=== PATIENT | female | born 1955 | race Caucasian/White ===

== ENCOUNTER 2022-03-13 10:17 | Emergency (ER) | payer OTHER, SELFPAY ==
[2022-03-13 10:38] VITALS: BP 112/72; PULSE 65; RESP 18; TEMP 36.2; O2SAT 98; BMI 23.9
--- NOTE | 2022-03-13 12:23 | ED.BACK ---
HPI - Back Pain/Injury General Chief Complaint: Back Injury/Pain Stated Complaint: Fell this morning, lower back pain Time Seen by Provider: 03/13/22 12:10 History of Present Illness HPI Narrative: This 66-year-old female comes in with an injury to her tailbone. About 3 hours prior to arrival she states that she was getting out of a car and she slipped and fell hard onto her tailbone. She was able to get up and ambulate. She did not have any other injury. She did not hit her head or have loss of consciousness. She has not taken any pain medicines. She is able to sit in a certain position without much increased discomfort. Related Data Home Medications Medication Instructions Recorded Confirmed calcium carbonate 600 mg-vitamin 1 tab PO DAILY 11/07/21 12/23/21 D3 10 mcg (400 unit) tablet clobetasol 0.05 % topical ointment 1 topical BID 11/07/21 12/23/21 sumatriptan succinate 100 mg tablet 100 mg PO ONCE 11/07/21 12/23/21 tizanidine 2 mg capsule 4 mg PO .1-3 X WEEKLY PRN 11/07/21 12/23/21 Previous Rx's Medication Instructions Recorded ibandronate 150 mg tablet 150 mg PO .Every 30 Days #4 tabs 11/07/21 metoprolol succinate 25 mg 25 mg PO DAILY #90 tabs 12/24/21 tablet,extended release 24 hr estradiol 10 mcg vaginal tablet See Rx Instructions .Route 02/17/22 .COMPLEX #24 tabs ketorolac 10 mg tablet 10 mg PO Q8H 5 days #15 tabs 03/13/22 Allergies Allergy/AdvReac Type Severity Reaction Status Date / Time No Known Allergies Allergy Unknown Verified 12/23/21 15:22 Review of Systems Status of ROS: Reports: 10 or more systems reviewed and unremarkable except as noted in History and below Narrative: Constitutional: No fevers, no weight gain or loss. Eyes: No discharge. No vision changes. HENT: No congestion, no sore throat, no ear pain. Cardiovascular: No chest pain, no palpitations. Respiratory: No shortness of breath, no wheezes, no cough. Gastrointestinal: No abdominal pain, no vomiting, no diarrhea. Genitourinary: No dysuria, no hematuria. Musculoskeletal: Normal range of motion. Tailbone injury as described above. Skin: No rashes, no pruritis. Neurological: No dizziness, weakness, sensory change, speech change. Endo/Heme/Allergies: No bruising or bleeding. No polydipsia. Pysch: no suicidality, no anxiety, no insomnia. All other systems reviewed and are negative. [facility] Medical History (Updated 03/13/22 @ 12:26 by Brian Kent MD) History of histoplasmosis Surgical History (Updated 11/07/21 @ 15:35 by Kaitlynn Rajan MD) History of benign breast biopsy History of cervical spinal arthrodesis (08/16/15) History of foot surgery Family History (Updated 10/11/21 @ 10:30 by Britt Armenta) Father CHF (congestive heart failure), Onset Age: 97 Daughter Mental disorder Paternal Grandmother Pancreatic cancer Family/Other Pancreatic cancer Social History (Updated 10/11/21 @ 10:31 by Britt Armenta) Narrative: Exercise involving walking- 30 min daily, walks dog, also [employer] Non-smoker Sig other, , retired special registered nurse obstetrics, 2 adult children Social drinker- 1 glass wine every day Smoking Status: Never smoker Exam Narrative: Exam Narrative: Constitutional: Well-developed, well-nourished, no acute distress. HEENT: Normocephalic, atraumatic. Neck: Normal range of motion. Nontender. Supple. Heart: Intact distal pulses. Lungs: No chest discomfort. No wheezes, rhonchi, or rales. Abdomen: Nontender. Back: Normal range of motion. Tenderness overlying the tailbone and sacrum. There is no sign of hematoma or significant swelling. Extremities: Normal range of motion. No injury. Skin: Intact. No rash. Warm. No erythema or pallor. Neurologic: No altered sensation. No weakness. Alert and oriented. Psychiatric: No suicidality. No anxiety or depression. No insomnia. Nursing notes and vitals signs are reviewed. Const: Vital Signs, click to edit/add: Vital Signs - 24 hr 03/13/22 10:38 Temperature 97.2 F L Pulse Rate [Right Pulse Oximeter] 65 Respiratory Rate 18 Blood Pressure [Ri ght Upper Arm] 112/72 Pulse Oximetry 98 Oxygen Delivery Me thod Room Air Course Vital Signs Vital signs: Initial Vital Signs Temperature 97.2 F L 03/13/22 10:38 Temperature Source Temporal Artery Scan 03/13/22 10:38 Pulse Rate 65 03/13/22 10:38 Respiratory Rate 18 03/13/22 10:38 Blood Pressure 112/72 03/13/22 10:38 Blood Pressure Mean 85 03/13/22 10:38 Blood Pressure Position Sitting 03/13/22 10:38 Pulse Oximetry 98 03/13/22 10:38 Oxygen Delivery Method 03/13/22 10:38 Vital Signs Temperature 97.2 F L 03/13/22 10:38 Pulse Rate 65 03/13/22 10:38 Respiratory Rate 18 03/13/22 10:38 Blood Pressure 112/72 03/13/22 10:38 Pulse Oximetry 98 03/13/22 10:38 Oxygen Delivery Method 03/13/22 10:38 Temperature 97.2 F L 03/13/22 10:38 Pulse Rate 65 03/13/22 10:38 Respiratory Rate 18 03/13/22 10:38 Blood Pressure 112/72 03/13/22 10:38 Pulse Oximetry 98 03/13/22 10:38 Oxygen Delivery Method 03/13/22 10:38 MDM - Back Pain/Injury MDM Narrative Medical decision making narrative: This patient comes in with a tailbone injury as described above. I did discuss the role of x-ray imaging but indicated that this could be an option as she is not showing more troubling signs and symptoms related to this particular injury. The mechanism of injury also is a fall from not quite standing height position. In a process of shared decision making she declined imaging. She did agree to a prescription of Toradol. She is instructed also to use Tylenol as needed and directed. Discharge Plan Discharge Clinical Impression: Coccygeal contusion Patient Disposition: Home w/ Parent or Adult Condition: Stable Additional Instructions: Take medication as needed and indicated. Increase activity as tolerated. Follow up with MD or return if worsening. Prescriptions: New ketorolac 10 mg tablet 10 mg PO Q8H 5 Days Qty: 15 0RF No Action clobetasol 0.05 % ointment 1 topical BID Rx Instructions: APPLY SPARINGLY TO AFFECTED AREA calcium carbonate-vitamin D3 600 mg-10 mcg (400 unit) tablet 1 tab PO DAILY tizanidine 2 mg capsule 4 mg PO .1-3 X WEEKLY PRN sumatriptan succinate 100 mg tablet 100 mg PO ONCE ibandronate 150 mg tablet 150 mg PO .Every 30 Days Qty: 4 3RF metoprolol succinate 25 mg tablet extended release 24 hr 25 mg PO DAILY Qty: 90 3RF estradiol 10 mcg tablet See Rx Instructions .ROUTE .COMPLEX Qty: 24 1RF Dose Instruction: INSERT 1 TABLET VAGINALLY TWICE WEEKLY Rx Instructions: INSERT 1 TABLET VAGINALLY TWICE WEEKLY Follow Up/Referrals: Kaitlynn Rajan MD [Primary Care Provider] - Stand Alone Forms: [employer] [facility] Info Instructions
[2022-03-13 13:04] VITALS: BP 119/77; PULSE 76; RESP 18; O2SAT 100
== END 2022-03-13 13:08 | disposition home or self-care (01) ==
LOC: ED 12:32
PROVIDERS: Emergency Provider Emergency Medicine Emergency Medical Services; PCP Internal Medicine
DX: S30.0XXA Contusion of lower back and pelvis, initial encounter (principal); V48.4XXA Person boarding or alighting a car injured in noncollision transport accident, initial encounter
CPT/HCPCS: 99283; 99284

== ENCOUNTER 2022-06-04 14:48 | Outpatient (CLI) | payer MEDICARE, OTHER, SELFPAY ==
--- NOTE | 2022-06-04 15:00 | CRLHL7_ITS ---
For Patients: As a result of the Cures Act, medical imaging exams and procedure reports are released immediately into your electronic medical record. You may view this report before your referring provider. If you have questions, please contact your health care provider. BILATERAL SCREENING MAMMOGRAM WITH COMPUTER-AIDED DETECTION AND TOMOSYNTHESIS TECHNIQUE: CC and MLO views were obtained. These mammographic images have been obtained using full-field digital technique. These mammographic images were interpreted with the benefit of computer-aided detection. Breast Tomosynthesis was used in this interpretation. COMPARISON FILM: 11/24/2019, 01/02/2021. FINDINGS: The breasts are heterogeneously dense, which may obscure small masses IMPRESSION: There is no radiographic evidence for malignancy. ASSESSMENT: BI-RADS Category 1: Negative RECOMMENDATION: Routine screening mammogram in 1 year. A lay language report of this examination will be provided to the patient. Adriel Fragoso M.D. Diagnostic Radiologist [email or web address] [email or web address] Transcribed: 2:52 p.mConstantine bautista/Dictated by: Adriel Fragoso MD @ 06/05/2022 8:56:00 AM (Electronically Signed)
== END 2022-06-04 14:49 | disposition home or self-care (01) ==
LOC: MAMMO 14:49
PROVIDERS: PCP Internal Medicine; Visit Provider Obstetrics & Gynecology
DX: Z12.31 Encounter for screening mammogram for malignant neoplasm of breast (principal); R92.2 Inconclusive mammogram
CPT/HCPCS: 77063; 77067

== ENCOUNTER 2023-08-05 10:09 | Outpatient (CLI) | payer MEDICARE, OTHER, SELFPAY ==
--- NOTE | 2023-08-05 10:15 | CRLHL7_ITS ---
For Patients: As a result of the Century Cures Act, medical imaging exams and procedure reports are released immediately into your electronic medical record. You may view this report before your referring provider. If you have questions, please contact your health care provider. BILATERAL SCREENING MAMMOGRAM WITH COMPUTER-AIDED DETECTION AND TOMOSYNTHESIS TECHNIQUE: CC and MLO views were obtained. These mammographic images have been obtained using full-field digital technique. These mammographic images were interpreted with the benefit of computer-aided detection. Breast Tomosynthesis was used in this interpretation. COMPARISON FILM: 06/04/22, 01/02/21, 11/24/19. FINDINGS: The breasts are heterogeneously dense, which may obscure small masses IMPRESSION: There is no radiographic evidence for malignancy. ASSESSMENT: BI-RADS Category 1: Negative RECOMMENDATION: Routine screening mammogram in 1 year. A lay language report of this examination will be provided to the patient. Adriel Fragoso M.D. Diagnostic Radiologist [email or web address] EDUARDO/[email or web address] Transcribed: 3:05 p.sonny bautista/Dictated by: Adriel Fragoso MD @ 08/07/2023 12:40:00 PM (Electronically Signed)
== END 2023-08-05 10:10 | disposition home or self-care (01) ==
LOC: MAMMO 10:10
PROVIDERS: PCP Internal Medicine; Visit Provider Obstetrics & Gynecology
DX: Z12.31 Encounter for screening mammogram for malignant neoplasm of breast (principal); R92.2 Inconclusive mammogram; Z13.6 Encounter for screening for cardiovascular disorders; Z13.29 Encounter for screening for other suspected endocrine disorder
CPT/HCPCS: 77063; 77067; 80061; 84443

== ENCOUNTER 2023-12-15 10:23 | Outpatient (CLI) | payer MEDICARE, OTHER, SELFPAY ==
--- OUTSIDE RECORDS SUMMARY | 2023-12-15 10:25 | XMS_ITS | Referral Summary ---
Author Organization [facility] Address [address] [place] [id number] Care Team Providers Care Senior Internal Auditor Name Role Phone Elsewhere, Pcp Primary Care Provider Unavailabl e Source Comments Patient records contain information from all sites at [facility]. For routine questions regarding patient records, call [phone] during business hours, M-F 8:00 AM - 5:00 PM Central Time. Record requests for emergency care only can be directed to [phone] at any time.[facility] Encounters Date Type Department Care Team Description 11/24/2023 8:15 AM CDT Telemedicine Department of Neurology in [address] [phone] Rachael Lowery APRN, C.N.P., M.S.N. Chronic Migraine (Primary Dx) 11/23/2023 10:30 AM CDT Clinical Communication Virtual Review in [address] [phone] Pre-visit Intake 11/09/2023 1:20 PM CDT - 11/09/2023 1:36 PM CDT Hospital Encounter Department of Neurology in [address] [phone] Rachael Lowery APRN C.N.P., M.S.N. Scotty Partida M.D. Chronic Migraine Discharge Disposition: Home or Self Care from Last 3 Months Allergies No known active allergies Medications * This document contains information received from the source organization and may not represent a complete record from that organization. clobetasoL (TEMOVATE) 0.05 % ointment Apply 1 application. topically as needed. Active ibandronate (BONIVA) 150 mg tablet Take 150 mg by mouth every 30 (thirty) days. 1 Active calcium carbonate-vit D3-min 600 mg calcium- 400 unit tablet Take 1 tablet by mouth daily. 8 Active diclofenac sodium (VOLTAREN) 1 % gel Apply 2 g topically as needed. 8 Active estradioL (VAGIFEM) 10 mcg vaginal tablet Insert 10 mcg into the vagina 2 (two) times a week. 2 Active tiZANidine (ZANAFLEX) 2 mg tablet Take 3 tablets (6 mg total) by mouth at bedtime as needed for muscle spasms. 270 tablet 3 3 Active DULoxetine (Cymbalta) [address] capsule If titration tolerated, then switch to 60 mg cap and take once daily. 90 capsule 4 4 Active SUMAtriptan (IMITREX) 100 mg tablet Take 1 tablet (100 mg total) by mouth once as needed (severe headache) for up to 1 dose. May repeat dose after 2 hrs. Limit: 9 days/month. 12 tablet 3 2 11/23/19 24 Discontinu ed(Therapy completed) DULoxetine (Cymbalta) [address] capsule If titration tolerated, then switch to 60 mg cap and take once daily. 90 capsule 4 3 11/24/19 24 Discontinu ed(Reorder ) Active Problems Problem Noted Date Diagnosed Date Adjustment Disorder 05/30/2021 Pain Cervical 05/30/2021 Osteopenia 05/30/2021 Chronic Migraine 03/06/2021 Immunizations Name Administration Dates Next Due PPD Test 07/26/1997 RZV (SHINGRIX) 05/03/2020,03/01/2020 SARS-COV-2 (COVID-19) - PFIZ ER (Discontinued)(12 years or older) 10/22/2021 SARS-COV-2 (COVID-19) - PFIZ ER BIVALENT TS(Discontinued)(12 YEARS OR OLDER) 12/19/2021 Td Preservative Free (TENIVAC, DECAVAC) 11/24/19 Td, (Adult) Unspecified 11/24/2019 Tdap 10/20/2005 influenza vaccine quad (FLUZ ONE/FLUARIX) (6 months and older)(PF) 12/19/2021 Social History Tobacco Use Types Packs/Day Years Used Date Smoking Tobacco: Never Passive Smoke Exposure: Past Smokeless Tobacco: Never Tobacco Cessation:Counseling Given: Not Answered Alcohol Use Standard Drinks/Week Comments Yes 3 (1 standard drink = 0.6 oz pur e alcohol) [facility] Utilities Answer Date Recorded In the past 12 months has e [employer], [employer], oil, or water [employer] threatened to shut off services in your home? No 02/24/2023 Humiliation, Afraid, Rape, and Kick questionnair e Answer Date Recorded Within the last year, have y ou been afraid of your partner or ex-partner? No 12/17/2021 Within the last year, have y ou been humiliated or emotionally abused in other ways by your partner or ex-partner? No Within the last year, have y ou been kicked, hit, slapped, or otherwise physically hurt by your partner or ex-partner? No 12/17/2021 Within the last year, have y ou been raped or forced to have any kind of sexual activity by your partner or ex-partner? No 12/17/2021 Social Connection and Isolat ion Panel [NHANES] Answer Date Recorded In a typical week, how many times do you talk on the phone with family, friends, or neighbors? More than three times a week 12/17/2021 How often do you get togethe r with friends or relatives? More than three times a week 12/17/2021 How often do you attend [facility] or roman catholic services? Never 12/17/2021 Do you belong to any clubs o r organizations such as episcopalian groups, unions, fraternal or athletic groups, or school groups? No 12/17/2021 How often do you attend meet ings of the clubs or organizations you belong to? Patient declined 12/17/2021 Are you , , di vorced, , never , or living with a partner? Living with partner 12/17/2021 AUDIT-C Answer Date Recorded Q1: How often do you have a drink containing alc ohol? 2-3 times a week 12/17/2021 Q2: How many drinks containi ng alcohol do you have on a typical day when you are drinking? 1 or 2 12/17/2021 Q3: How often do you have si x or more drinks on one occasion? Never 12/17/2021 Overall Financial Resource Strain (CARDIA) Answe r Date Recorded How hard is it for you to pa y for the very basics like food, housing, medical care, and heating? Not hard at all 12/17/2021 PHQ-2 Answer Date Recorded PHQ-2 Score 0 11/23/2023 [facility] - Occupational Stress Questionnaire Answer Date Recorded Do you feel stress - tense, restless, nervous, or anxious, or unable to sleep at night because your mind is troubled all the time - these days? Only a little 12/17/2021 Exercise Vital Sign Answer Date Recorde d On average, how many days pe r week do you engage in moderate to strenuous exercise (like a brisk walk)? 7 days 02/24/2023 On average, how many minutes do you engage in exercise at this level? 100 min 02/24/2023 Hunger Vital Sign Answer Date Recorded Within the past 12 months, y ou worried that your food would run out before you got the money to buy more. Never true 02/25/20 Within the past 12 months, t he food you bought just didn't last and you didn't have money to get more. Never true 02/24/2023 PRAPARE - Transportation Answer Date Re corded In the past 12 months, has l ack of transportation kept you from medical appointments or from getting medications? No 01/31 In the past 12 months, has l ack of transportation kept you from meetings, work, or from getting things needed for daily living? No 02/24/2023 Depression Answer Date Recor ded PHQ-9 Total Score (max 27) 2 11/22 Nutrition Answer Date Recorded On average, how many serving s of fruits and vegetables do you eat per day (serving size is equal to 1 cup or approximately the size of a tennis ball)? 3-5 02/24/2023 Dental Answer Date Recorded Dental: Regular Dentist Yes 03/12/19 Employment Answer Date Recorded Employment status Retired 02/24/2023 Housing Stability Answer Date Recorded What is your living situation today? I have a [facility] place to live 02/24/2023 Education Answer Date Recorded What is the highest level of school you have completed or the highest degree you have received? Master's degree (e.g., MA, MS, Melissa, MEd, [employer]GE [employer], [employer]) 03/12/2021 Comments No Sex and Gender Information Value Date Recorded Sex Assigned at Female 03/12/2021 9:45 AM [employer] Legal Sex Female 10:38 AM [employer] Gender Identity Female 03/12/2021 9:45 AM [employer] Sexual Orientation Straight 03/12/2021 9: 45 AM [employer] Last Filed Vital Signs Vital Sign Reading Time Taken Comments Blood Pressure 88/58 06/12/2022 10:18 AM CDT Pulse 53 06/12/2022 10:18 AM CDT Temperature 36.6 ??C (97.9 ??F) 07/03/2021 1 :42 PM CDT Respiratory Rate - - Oxygen Saturation - - Inhaled Oxygen Concentration - - Weight 63.7 kg (140 lb 6.9 oz) 06/12/2022 10:18 AM CDT with shoes on Height 164.2 cm (5' 4.65) 06/12/2022 1 0:18 AM CDT with shoes on Body Mass Index 23.63 06/12/2022 10:18 AM CDT Plan of Treatment Upcoming Encounters Date Type Department Care Team (Late st Contact Info) Description 02/01/2024 2:45 PM [employer] Appointment Department of Neurology in [place], [place] [address] [place] [phone] Rachael Lowery APRN, C.N.P., M.S.N. [address] [place] [address] Discharge Disposition: Home or Self Care Medical Devices Implanted Type Area Director Of Hemophilia Device Identifier Shelf Expiration Date Model / Serial / Lot C1 C2 Fusion Hardware e.g. pins/screws/r ods Back Dental Implant Hardware e.g. pins/screws/r ods Mouth Procedures Procedure Name Priority Date/Time Associated Diagnosis Comments SC CHEMODENERV FACIAL TRIGEM ASHLEIGH Routine 11/09/2023 1:30 PM CDT Chronic Migraine from Last 3 Months Results * SC CHEMODENERV FACIAL TRIGEM ASHLEIGH (11/09/2023 1:30 PM CDT) Narrative [facility] - 11/09/2023 1:30 PM CDT Scotty Partida M.D. ? 11/09/2023 ??1:36 PM Botox for Chronic Migraine Performed by: Scotty Partida M.D. Authorized by: Rachael Lowery APRN, C.N.P., M.S.N. ?? Care team members present 1. Jak Chandler L.P.N. PROCEDURE DETAILS ?? Pre-procedure pain score: 4/10 Injection of: ??100 Units onabotulinumtoxinA 100 unit 50 Units onabotulinumtoxinA 50 unit Needle gauge: 30 Needle length: 0.5 in Injection site details Senior Manager [employer] / Procerus muscle(s): 5 units into the left call worker muscle, 5 units into the right call worker muscle ??and 5 units into the procerus muscle ??(15 units total). Superior Frontalis muscle(s): 5 units into the left superior frontalis muscle and 5 units into the right superior frontalis muscle ?(2 injection sites per muscle) (10 units total). Temporalis muscle(s): 12.5 units into the left temporalis muscle and 12.5 units into the right temporalis muscle ?(2 injection sites per muscle) ?? (25 units total). Splenius Capitis muscle(s): 12.5 units into the left splenius capitis muscle and 12.5 units into the right splenius capitis muscle ?(2 injection sites per muscle) ??(25 units total). Occipitalis muscle(s): 12.5 units into the left occipitalis muscle and 12.5 units into the right occipitalis muscle ?? (2 injection sites per muscle) ??(25 units total). Trapezius muscle(s): 25 units into the left trapezius muscle and 25 units into the right trapezius muscle ?? (3 injection sites per muscle) ??(50 units total). Total units wasted: 0 Total units injected: 150 CONSENT Consent obtained: written (Risks, benefits and alternatives were discussed and a written Informed Consent was obtained. Please see Informed Consent form for further details.) UNIVERSAL PROTOCOL All relevant documentation and testing were reviewed and available. All required blood products, implants, devices and or special equipment were made available as applicable. Pre-procedure verification was conducted and the correct site was marked if required. A fire risk and smoke assessment were done as applicable. The procedural time-out to verify correct patient, correct side/site, and procedure was conducted prior to performing the procedure and confirmed in a procedural pause. PRE-PROCEDURE DETAILS ?? Reason for injections: chronic migraine Appropriate hand hygiene, gown, cap, mask, protective eyewear, sterile gloves, skin preparation, sterile drape, and strict aseptic technique were utilized as applicable for the procedure: yes Site preparation: alcohol Clinical history: Patient was made aware that they may be responsible for any and all costs associated with injection of Botulinum Toxin Type A that is not covered by a third libertarian. ?? Prior to treatment with Botox, the frequency of headaches was greater than 30 days per month and with significant impairment in the quality of life. ?? Please see the initial Botox injection note and Headache consultation note regarding specific details of the headache history prior to the start of treatment. Any other daily migraine prophylactic treatments taken over the last 3 months: ??Duloxetine (Cymbalta) Headache frequency when Botox is most effective (middle month in between rounds). Current headache days per month: 1 days Current severe headache days per month: 0 days Wearing off phenomenon prior to this round of Botox: yes Duration: 3 weeks Patient finds Botox treatment helpful and wants to repeat the treatment? yes Patient had migraine headache frequency reduction by at least 29 days per month compared to pretreatment level. ?? Midas Scorin (11/03/2023 ??4:25 PM) POST-PROCEDURE DETAILS ?? Procedure completed successfully: yes ?? Complications: no apparent complications Comments Medications tried prior to Botox Botox treatment: Metoprolol, Gabapentin, Topiramate and Atenolol. Prior to Botox how many days per month did you miss work/school due to migraines? None- powered through. Prior to Botox how many days per month did you miss out on family functions or home activities due to migraines? None- powered through. Prior to Botox did severe migraines cause symptoms that impacted your quality of life and ability to care for yourself? If yes, what symptoms? Yes. Pressure like/ throbbing head pain. With Botox how many days per month do you miss work/school due to migraines? None. With Botox how many days per month do you miss out on family functions or home activities due to migraines? None. How has Botox impacted your quality of life; are you able to do more at work/school or home? Yes. More active and functional with Botox treatment. What migraine symptoms have you noted an improvement on since starting Botox? Improvement in all symptoms with Botox. Jaime Gardner APRNNNimisha., M.S.N. NEUROLOGY ORDERABLES Final Result [facility] NA from Last 3 Months Insurance MEDICARE [facility] Care Teams Senior Internal Auditor Relationship Specialty Start Date End Date Elsewhere, Pcp PCP - General Internal Medicine 05/22/23
--- OUTSIDE RECORDS SUMMARY | 2023-12-15 10:25 | XMS_ITS ---
Author Organization [facility] Address [address] [place] [address] Care Team Providers Care Dorr Operator Name Role Phone Unavailable Unavailable Unavailable Surgery Details Not on file Complications Check Surgery Details section. Procedure Estimated Blood Loss Check Surgery Details section. Procedure Findings Check Surgery Details section. Procedure Specimens Taken Check Surgery Details section.
--- OUTSIDE RECORDS SUMMARY | 2023-12-15 10:25 | XMS_ITS | Encounter Summary ---
Author Organization [facility] Address [address] [place] [id number] Care Team Providers Care Metal Plater Name Role Phone Elsewhere, Pcp Primary Care Provider Unavailabl e Reason for Referral * Outpatient (Routine) - Authorized Specialty Diagnoses / Procedures Referred By Kwabenaac t Referred To Contact Diagnoses Chronic Migraine Procedures Botox for Chronic Migraine FL INJECTION,ONABOTULINUMTOXINA FL CHEMODENERV FACIAL TRIGEM ASHLEIGH Rachael Lowery APRN, C.N.P., M.S.N. [address] [place] [phone] Phone: tel: fax: [facility] Referral ID Status Reason Start Date Expiration Date V isits Requested Visits Authorized [id number] Authorized 03/19/2022 03/01/2024 12 12 Reason for Visit * Outpatient (Routine) - Authorized Specialty Diagnoses / Procedures Referred By Contac t Referred To Contact Diagnoses Chronic Migraine Procedures Botox for Chronic Migraine FL INJECTION,ONABOTULINUMTOXINA FL CHEMODENERV FACIAL TRIGEM ASHLEIGH Rachael Lowery APRN, C.N.P., M.S.N. [address] [place] [phone] Phone: tel: fax: [facility] Referral ID Status Reason Start Date Expiration Date V isits Requested Visits Authorized [id number] Authorized 03/19/2022 03/01/2024 12 12 Encounter Details Date Type Department Care Team (Latest Contact Info) Description 11/09/2023 1:20 PM CDT - 11/09/2023 1:36 PM CDT Hospital Encounter Department of Neurology in [place], [place] [address] [place] [phone] Racheal Lowery APRN, CConstantineNConstantineP., M.S.N. [address] [place] [phone] Scotty Partida M.D. [address] [place] [phone] Chronic Migraine Discharge Disposition: Home or Self Care Social History Tobacco Use Types Packs/Day Years Used Date Smoking Tobacco: Never Passive Smoke Exposure: Past Smokeless Tobacco: Never Alcohol Use Standard Drinks/Week Comments Yes 3 (1 standard drink = 0.6 oz pur e alcohol) [facility] [employer] Answer Date Recorded In the past 12 months has [employer], oil, or water [employer] threatened to shut off services in your [...] week 12/17/2021 How often do you attend [facility] or [facility]ai services? Never 12/17/2021 Do you belong to any clubs o r organizations such as protestant groups, unions, fraternal or athletic groups, or [...] PHQ-2 Answer Date Recorded PHQ-2 Score 0 05/25/2023 [facility] - Occupational Stress Questionnaire Answer Date Recorded [...] money to buy more. Never true 02/25/20 23 Within the past 12 months, t he [...] Recor ded PHQ-9 Total Score (max 27) 0 05/24 Nutrition Answer Date Recorded On average, how [...] your living situation today? I have a [facility] place to live 02/24/2023 Education Answer Date Recorded What is the highest level of school you have completed or the highest degree you have received? Master's degree (e.g., MA, MS, Melissa, MEd, RADIOACTIVE WASTE DISPOSAL DISPATCHER, ROBERTO CARLOS) 03/12/2021 Comments No Sex and Gender Information Value Date Recorded Sex Assigned at Female 03/12/2021 9:45 AM POULTRY BONER Legal Sex Female 10:38 AM POULTRY BONER Gender Identity Female 03/12/2021 9:45 AM POULTRY BONER Sexual Orientation Straight 03/12/2021 9: 45 AM POULTRY BONER documented as of this encounter Medications at Time of Discharge calcium carbonate-vit D3-min 600 mg calcium- 400 unit tablet Take 1 tablet by mouth daily. 07/15/2017 clobetasoL (TEMOVATE) 0.05 % ointment Apply 1 application. topically as needed. diclofenac sodium (VOLTAREN) 1 % gel Apply 2 g topically as needed. 08/10/2017 estradioL (VAGIFEM) 10 mcg vaginal tablet Insert 10 mcg into the vagina 2 (two) times a week. 03/15/2021 ibandronate (BONIVA) 150 mg tablet Take 150 mg by mouth every 30 (thirty) days. 01/05/2021 tiZANidine (ZANAFLEX) 2 mg tablet Take 3 tablets (6 mg total) by mouth at bedtime as needed for muscle spasms. 270 tablet 3 02/27/2023 DULoxetine (Cymbalta) [address] capsule If titration tolerated, then switch to 60 mg cap and take once daily. 90 capsule 4 12/09/2022 09/24/202 4 SUMAtriptan (IMITREX) 100 mg tablet Take 1 tablet (100 mg total) by mouth once as needed (severe headache) for up to 1 dose. May repeat dose after 2 hrs. Limit: 9 days/month. 12 tablet 3 03/12/2021 4 documented as of this encounter Procedure Notes * Scotty Partida M.D. - 11/09/2023 1:30 PM CDTAssociated Order(s): Botox for Chronic Migraine Pre-Procedure Diagnose(s): Chronic Migraine Post-Procedure Diagnose(s): Chronic Migraine Botox for Chronic Migraine Performed by: Scotty Partida M.D. Authorized by: Rachael Lowery APRN, C.N.P., M.S.N. Care team members present 1. Jak Chandler LConstantinePNya PROCEDURE DETAILS Pre-procedure pain score: 4/10 Injection of: 100 Units onabotulinumtoxinA 100 unit 50 Units onabotulinumtoxinA 50 unit Needle gauge: 30 Needle length: 0.5 in Injection site details Film Reproducer / Procerus muscle(s): 5 units into the left extruder operator vertical muscle, 5 units into the right extruder operator vertical muscle and 5 units into the procerus muscle (15 units total). Superior Frontalis muscle(s): 5 units into the left superior frontalis muscle and 5 units into the right superior frontalis muscle (2 injection sites per muscle) (10 units total). Temporalis muscle(s): 12.5 units into the left temporalis muscle and 12.5 units into the right temporalis muscle (2 injection sites per muscle) (25 units total). Splenius Capitis muscle(s): 12.5 units into the left splenius capitis muscle and 12.5 units into the right splenius capitis muscle (2 injection sites per muscle) (25 units total). Occipitalis muscle(s): 12.5 units into the left occipitalis muscle and 12.5 units into the right occipitalis muscle (2 injection sites per muscle) (25 units total). Trapezius muscle(s): 25 units into the left trapezius muscle and 25 units into the right trapezius muscle (3 injection sites per muscle) (50 units total). Total units wasted: 0 Total [...] confirmed in a procedural pause. PRE-PROCEDURE DETAILS Reason for injections: chronic migraine Appropriate hand [...] is not covered by a third libertarian. Prior to treatment with Botox, the frequency of headaches was greater than 30 days per month and with significant impairment in the quality of life. Please see the initial Botox injection note and Headache consultation note regarding specific details of the headache history prior to the start of treatment. Any other daily migraine prophylactic treatments taken over the last 3 months: Duloxetine (Cymbalta) Headache frequency when Botox is most [...] days per month compared to pretreatment level. Midas Scorin (11/03/2023 4:25 PM) POST-PROCEDURE DETAILS Procedure completed successfully: yes Complications: no apparent complications Comments Medications tried [...] Botox? Improvement in all symptoms with Botox. documented in this encounter Plan of Treatment Upcoming Encounters Date Type Department Care Team (Late st Contact Info) Description 02/01/2024 2:45 PM POULTRY BONER Appointment Department of Neurology in [place], [place] [address] [place] [phone] Rachael Lowery APRN, C.N.P., M.S.N. [address] [place] [address] Discharge Disposition: Home or Self Care documented as of this encounter Procedures Procedure Name Priority Date/Time Associated Diagnosis Comments FL CHEMODENERV FACIAL TRIGEM ASHLEIGH Routine 11/09/2023 1:30 PM CDT Chronic Migraine documented in this encounter Results * FL CHEMODENERV FACIAL TRIGEM ASHLEIGH (11/09/2023 1:30 PM [...] Needle length: 0.5 in Injection site details Film Reproducer / Procerus muscle(s): 5 units into the left extruder operator vertical muscle, 5 units into the right extruder operator vertical muscle ??and 5 units into the procerus [...] Botox? Improvement in all symptoms with Botox. Rachael Lowery APRN, C.N.P., M.S.N. NEUROLOGY ORDERABLES Final Result MMODAL NA documented in this encounter Visit Diagnoses Diagnosis Chronic Migraine documented in this encounter Administered Medications Inactive Administered Medications - up to 3 most recent administrations Medication Order MAR Action Action Date Dose Rate Site onabotulinumtoxinA injection 100 Units (Botox) 100 Units, injection, One-Time Injection, Starting on Thu11/09/23 at 1330, For 1 doseIndications:Chronic Migraine Given 11/09/2023 1:30 PM CDT 100 Units Other onabotulinumtoxinA injection 50 Units (Botox Cosmetic) 50 Units, injection, One-Time Injection, Starting on Thu11/09/23 at 1330, For 1 doseIndications:Chronic Migraine Given 11/09/2023 1:30 PM CDT 50 Units Other documented in this encounter Additional Health Concerns Assessment Noted Time PHQ-9 Depression Total Score: 0 05/25/19 9:46 AM CDT documented as of this encounter Care Teams Metal Plater Relationship Specialty Start Date End Date Elsewhere, Pcp PCP - General Internal Medicine 05/22/23 documented as of this encounter
--- OUTSIDE RECORDS SUMMARY | 2023-12-15 10:25 | XMS_ITS | Encounter Summary ---
Author Organization [facility] Address [address] [place] [address] Care Team Providers Care Visiting Housekeeper Name Role Phone Elsewhere, Pcp Primary Care Provider Unavailabl e Reason for Visit * Reason Onset Date Comments Pre-visit Intake 11/23/2023 Encounter Details Date Type Department Care Team (Latest Contact Info) Description 11/23/2023 10:30 AM CDT Clinical Communication Virtual Review in [place], [place] [address] [place] [phone] Pre-visit Intake Social History Tobacco Use Types Packs/Day Years Used Date Smoking Tobacco: Never Passive Smoke Exposure: Past Smokeless Tobacco: Never Tobacco Cessation:Counseling Given: Not Answered Alcohol Use Standard Drinks/Week Comments Yes 3 (1 standard drink = 0.6 oz pur e alcohol) [facility] Utilities Answer Date Recorded In the past 12 months has e [employer], gas, oil, or water [employer] threatened to shut off services in your [...] week 12/17/2021 How often do you attend chur ch or holiness services? Never 12/17/2021 Do you belong to any clubs o r organizations such as hinduism groups, unions, fraternal or athletic groups, or [...] Answer Date Recorded PHQ-2 Score 0 11/23/2023 [facility] - Occupational Stress Questionnaire Answer Date Recorded [...] your living situation today? I have a [facility] place to live 02/24/2023 Education Answer Date Recorded What is the highest level of school you have completed or the highest degree you have received? Master's degree (e.g., MA, MS, Melissa, MEd, SEARCH ANALYST, ROBERTO CARLOS) 03/12/2021 Comments No Sex and Gender Information Value Date Recorded Sex Assigned at Female 03/12/2021 9:45 AM MILL TURNER Legal Sex Female 10:38 AM MILL TURNER Gender Identity Female 03/12/2021 9:45 AM MILL TURNER Sexual Orientation Straight 03/12/2021 9: 45 AM MILL TURNER documented as of this encounter Plan of Treatment Upcoming Encounters Date Type Department Care Team (Late st Contact Info) Description 02/01/2024 2:45 PM MILL TURNER Appointment Department of Neurology in [place], [place] [address] [place] [phone] Rachael Lowery, EVERETT, C.N.P., M.S.N. [address] [place] [address] Discharge Disposition: Home or Self Care documented as of this encounter Visit Diagnoses Not on filedocumented in this encounter Additional Health Concerns Assessment Noted Time PHQ-9 Depression Total Score: 2 11/23/19 24 9:56 AM CDT documented as of this encounter Care Teams Visiting Housekeeper Relationship Specialty Start Date End Date Elsewhere, Pcp PCP - General Internal Medicine 05/22/23 documented as of this encounter
--- OUTSIDE RECORDS SUMMARY | 2023-12-15 10:25 | XMS_ITS | Clinical Summary ---
Author Organization [facility] Address [address] [place] [address] Care Team Providers Care Emergency Response Technician Name Role Phone Elsewhere, Pcp Primary Care Provider Unavailabl e Source Comments Patient records contain information from all sites at [facility]. For routine questions regarding patient records, call [phone] during business hours, M-F 8:00 AM - 5:00 PM Central Time. Record requests for emergency care only can be directed to [phone] at any time.[facility] Allergies No known active allergies Medications * [...] 9 days/month. 12 tablet 3 2 11/23/19 Discontinu ed(Therapy completed) DULoxetine (Cymbalta) [address] capsule If titration tolerated, then switch to 60 mg cap and take once daily. 90 capsule 4 3 11/24/19 Discontinu ed(Reorder ) Active Problems Problem Noted Date Diagnosed Date Adjustment Disorder 05/30/2021 Pain Cervical 05/30/2021 Osteopenia 05/30/2021 Chronic Migraine 03/06/2021 Encounters Date Type Department Care Team Description 11/24/2023 8:15 AM CDT Telemedicine Department of Neurology in [address] [phone] Rachael Lowery APRN, C.N.P., M.S.N. Chronic Migraine (Primary Dx) 11/23/2023 10:30 AM CDT Clinical Communication Virtual Review in [address] [phone] Pre-visit Intake 11/09/2023 1:20 PM CDT - 11/09/2023 1:36 PM CDT Hospital Encounter Department of Neurology in [address] [phone] Rachael Lowery APRN, C.N.P., M.S.N. Scotty Partida M.D. Chronic Migraine Discharge Disposition: Home or Self Care from Last 3 Months Immunizations Name Administration Dates Next Due PPD Test 07/26/1997 RZV (SHINGRIX) 05/03/2020,03/01/2020 SARS-COV-2 (COVID-19) - PFIZ ER (Discontinued)(12 years or older) 10/22/2021 SARS-COV-2 (COVID-19) - PFIZ ER BIVALENT TS(Discontinued)(12 YEARS OR OLDER) 12/19/2021 Td Preservative Free (TENIVAC, DECAVAC) 11/24/19 Td, (Adult) Unspecified 11/24/2019 Tdap 10/20/2005 influenza vaccine quad (FLUZ ONE/FLUARIX) (6 months and older)(PF) 12/19/2021 Family History Medical History Relation Name Comments Osteoporosis Father dad Arthritis Mother mom Osteoporosis Mother mom Breast cancer Paternal Grandmother Dad deceas ed Pancreatic cancer Paternal Grandmother Dad Prostate cancer Paternal Grandmother Dad Relation Name Status Comments Father dad Mother mom Paternal Grandmother Dad Social History Tobacco Use Types Packs/Day Years Used Date Smoking Tobacco: Never Passive Smoke Exposure: Past Smokeless Tobacco: Never Tobacco Cessation:Counseling Given: Not Answered Alcohol Use Standard Drinks/Week Comments Yes 3 (1 standard drink = 0.6 oz pur e alcohol) [facility] Utilities Answer Date Recorded In the past 12 months has e [place], gas, oil, or water [employer] threatened to shut off services in your [...] often do you attend chur ch or congregational services? Never 12/17/2021 Do you belong to any clubs o r organizations such as latter day groups, unions, fraternal or athletic groups, or [...] Answer Date Recorded PHQ-2 Score 0 11/23/2023 [facility] Occupational Stress Questionnaire Answer Date [...] your living situation today? I have a [facility] place to live 02/24/2023 Education Answer Date Recorded What is the highest level of school you have completed or the highest degree you have received? Master's degree (e.g., MA, MS, Melissa, MEd, DISPATCH MANAGER, ROBERTO CARLOS) 03/12/2021 Comments No Sex and Gender Information Value Date Recorded Sex Assigned at Female 03/12/2021 9:45 AM PETAL SHAPER HAND Legal Sex Female 10:38 AM PETAL SHAPER HAND Gender Identity Female 03/12/2021 9:45 AM PETAL SHAPER HAND Sexual Orientation Straight 03/12/2021 9: 45 AM PETAL SHAPER HAND Last Filed Vital Signs Vital Sign Reading [...] st Contact Info) Description 02/01/2024 2:45 PM PETAL SHAPER HAND Appointment Department of Neurology in [place], [place] [address] [place] [address] Rachael Lowery APRN, C.N.P., M.S.N. [address] [place] [address] Discharge Disposition: Home or Self Care Health Maintenance Due Date Last Done Comments Bone Density Scan (Osteoporo sis Screen) 1957 CT Colonography 1957 Colonoscopy 1957 FIT 1957 Fasting Glucose for Diabetes Screening 1955 Hepatitis C Screening 1955 Mammogram 1957 Fall Risk Screen (Annual) 03/02/2023 COVID-19 Vaccine (6 - 2023-2 5 season) 2023 12/19/2021, 10/22/2021, 02/19/2021, Additional history exists Influenza Vaccine (#1) 2023 12/08/2022, 2021 Cologuard 02/17/2026 02/17/2023 Colorectal Cancer Screening 02/17/2026 DTaP,Tdap,and Td Vaccines (4 - Td or Tdap) 11/23/2029 11/24/2019, 11/24/2019, 10/20/2005 Cervical Cancer Screening Discontinued 02/05/2017 Zoster Vaccines Completed 05/03/2020, 03/01/2020 Pneumococcal vaccine (65+ years) Completed 12/09/19 Depression Screening (Annual PHQ-2) Completed 05/25/2023 Medical Devices Implanted Type Area Fiberglass Boat Maker Device Identifier Shelf Expiration Date Model / Serial / Lot C1 C2 Fusion Hardware e.g. pins/screws/r ods Back Dental Implant Hardware e.g. pins/screws/r ods Mouth Procedures Procedure Name Priority Date/Time Associated Diagnosis Comments SD CHEMODENERV FACIAL TRIGEM ASHLEIGH Routine 11/09/2023 1:30 PM CDT Chronic Migraine from Last 3 Months Results * SD CHEMODENERV FACIAL TRIGEM ASHLEIGH (11/09/2023 1:30 PM CDT) Narrative MMODAL - 11/09/2023 1:30 PM CDT Scotty Partida M.D. ? 11/09/2023 ??1:36 PM Botox for Chronic Migraine Performed by: Scotty Partida M.D. Authorized by: Rachael Lowery APRN, C.N.P., M.S.N. ?? Care team members present 1. Jak Chandler L.PConstantineNConstantine PROCEDURE DETAILS ?? Pre-procedure pain score: 4/10 Injection of: ??100 Units onabotulinumtoxinA 100 unit 50 Units onabotulinumtoxinA 50 unit Needle gauge: 30 Needle length: 0.5 in Injection site details Glassine Machine Tender / Procerus muscle(s): 5 units into the left machine gunner muscle, 5 units into the right machine gunner muscle ??and 5 units into the procerus [...] that is not covered by a third constitution party. ?? Prior to treatment with Botox, the [...] NA from Last 3 Months Insurance MEDICARE [facility] [employer] [facility] Care Teams Emergency Response Technician Relationship Specialty Start Date End Date Elsewhere, Pcp PCP - General Internal Medicine 05/22/23
--- OUTSIDE RECORDS SUMMARY | 2023-12-15 10:25 | XMS_ITS | Encounter Summary ---
Author Organization [facility] Address [address] [place] [id number] Care Team Providers Care Bonbon Dipper Name Role Phone Elsewhere, Pcp Primary Care Provider Unavailabl e Reason for Referral * Outpatient (Routine) - Authorized Specialty Diagnoses / Procedures Referred By Contac t Referred To Contact Neurology Rachael Lowery APRN, C.N.P., M.S.N. [address] [place] [phone] Phone: tel: fax: Health System Referral ID Status Reason Start Date Expiration Date V isits Requested Visits Authorized [id number] Authorized 11/24/2023 05/25/2025 1 1 Scheduling Instructions Same day as Botox, or can be video visit on a different day Reason for Visit * Outpatient (Routine) - Closed Specialty Diagnoses / Procedures Referred By Contac t Referred To Contact Neurology Rachael Lowery APRN, C.N.P., M.S.N. [address] [place] [phone] Phone: tel: fax: Health System Referral ID Status Reason Start Date Expiration Date Visits Re quested Visits Authorized [id number] Closed 05/25/2023 11/23/2024 1 1 Encounter Details Date Type Department Care Team (Late st Contact Info) Description 11/24/2023 8:15 AM CDT Telemedicine Department of Neurology in [place], [place] [address] [place] [phone] Rachael Lowery APRN C.N.P., M.S.N. [address] [place] [phone] Chronic Migraine (Primary Dx) Social History Tobacco Use Types Packs/Day Years Used Date Smoking Tobacco: Never Passive Smoke Exposure: Past Smokeless Tobacco: Never Alcohol Use Standard Drinks/Week Comments Yes 3 (1 standard drink = 0.6 oz pur e alcohol) [facility] Utilities Answer Date Recorded In the past 12 months has e [employer], gas, oil, or [employer] threatened to shut off services in your [...] often do you attend chur ch or nondenominational services? Never 12/17/2021 Do you belong to any clubs o r organizations such as religious groups, unions, fraternal or athletic groups, or [...] Answer Date Recorded PHQ-2 Score 0 11/23/2023 [facility] - Occupational Stress Questionnaire Answer Date [...] your living situation today? I have a [place] place to live 02/24/2023 Education Answer Date Recorded What is the highest level of school you have completed or the highest degree you have received? Master's degree (e.g., MA, MS, Melissa, MEd, TE[employer]ATION WORK[employer], [employer]) 03/12/2021 Comments No Sex and Gender Information Value Date Recorded Sex Assigned at Female 03/12/2021 9:45 AM LEARNING ADMINISTRATOR Legal Sex Female 10:38 AM LEARNING ADMINISTRATOR Gender Identity Female 03/12/2021 9:45 AM LEARNING ADMINISTRATOR Sexual Orientation Straight 03/12/2021 9: 45 AM LEARNING ADMINISTRATOR documented as of this encounter Progress Notes * Rachael Lowery APRN, C.N.P., M.S.N. - 11/24/2023 8:15 AM CDT SUBJECTIVE Visit was conducted via video consult using real-time audio/video technology by Rachael Lowery CNP, at [facility] with the patient. CHIEF COMPLAINT / REASON FOR VISIT Follow up headaches Established care in Neurology Headache Clinic: 2021 Previous headache providers: Abbie Parmar: April 2021 HISTORY OF PRESENT ILLNESS: Ms. Craft is a 68 y.o. female, with an established diagnosis of chronic migraine headaches and cervicogenic headaches. Patient also has a history of osteoporosis, palpitations, and psoriasis. Ms. Craft returns today for follow up and subsequent evaluation of headache symptoms. Ms. Craft was last evaluated for headache follow up on May 25, 2023. For the last 6 months the patient's headaches have remained stable. She denies any new headache characteristics. She is averaging 5 headache days per month, 0 of which is severe. She continues to have intermittent sharp shooting pain in the occipital areas bilaterally. This happens intermittently an infrequently. She denies specific triggers. She denies focal neurologic symptoms. For migraine prophylaxis, she has been receiving Botox injections for migraine prophylaxis since April of 2021 and continues to endorse a greater than 50% improvement in both frequency and intensity with the continued use Botox. She has 2 weeks of wearing off prior to her next round of injections. She also takes Cymbalta 60 mg daily which has been helpful for both mood and headaches. She is tolerating her headache medications without side effects. For abortive therapy she uses Tylenol sparingly, less than 10 days per month. She has sumatriptan available, but rarely uses this, as her headaches are [id number]-lc-[id number] nature. She is not currently at risk for medication overuse. The patient has a history of C1-C2 [place] [address] Jayson Sharma (outside institution). Shehas a history of chronic neck pain dating back since prior to her surgery. She continues to endorsea link between her neck pain and her migraine headaches. She was evaluated in our [facility] by Dr. Becerril on May 30, 2021. Physical therapy in the past with variable improvement in her pain. She will use tizanidine for flares of her neck pain, sparingly, which continues to provide benefit in thisregard. The tizanidine can causes somnolent side effects. PATIENT QUESTIONNAIRE DATA Current headache medications: Cymbalta 60 mg daily; Headache activity past 4 weeks/ Medication side effects: Over the past 4 weeks, Thursday reports having had 5 headache days. The patient rates the severity and disability of average headaches as moderate, 2 out of 3 in severity. Over the past 3 months, she reports experiencing side effects of: none MIDAS headache scale score: [0] PHQ9 depression/anxiety score: 11/23/2023 9:56 AM PHQ9 Score PHQ-9 Total Score (max 27) 2 Previous Headache Medications: Tylenol, naproxen, ibuprofen, tizanidine, sumatriptan Metoprolol, gabapentin, topiramate, Botox, Lyrica, Paxil for mood, amitriptyline somnolence and weight gain PT for neck pain, massage PREVIOUS EVALUATIONS/IMAGING/TESTS 03/13/21 MRI Brain and MRI C-spine 1. 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 Indeterminate subtle enhancement in the medulla may also represent a similar vascular anomaly. 2. Presumed small meningioma overlying the left parietal lobe. 3. Postoperative changes at C1-2 with associated susceptibility artifact which obscures some regional anatomy. 4. Mild multilevel cervical spine degenerative changes with foraminal narrowing most marked on the right at C4-5. 05/30/21 Spine Consult 3/22: Outside stress echo unremarkable. OBJECTIVE PHYSICAL EXAM Deferred ASSESSMENT / PLAN #1 Chronic migraine headache #2 Cervicogenic headache Ms. Thursday continues to maintain stability of her migraine headaches on her current regimen. At this time I recommend no changes to her prophylactic or abortive therapies as outlined below. She will continue with the tizanidine for her cervicogenic headaches as needed. We discussed the possibility of occipital nerve blocks, should the patient notice an increase in paroxysmal occipital neuralgic type pain. She will stay in touch on the portal if she would like to proceed with the blocks. The patient may contact me via the patient portal or contact my secretary of state directly with any additional questions or concerns. All questions were answered to the best of my ability, and the patient verbalized understanding of the proposed treatment plan as outlined below: SUMMARY OF RECOMMENDATIONS: Preventive therapy: Continue Botox 150 units every 12 weeks and Cymbalta 60 mg daily. Consider bilateral occipital nerve blocks per the patient's request. Tizanidine 6 mg at bedtime, or as needed for cervicogenic headache. For acute treatment of mild to moderate headaches, the patient may take Tylenol. Limit use to no more than 10 days per month or 2-3 days per week. For acute treatment of severe headaches, the patient may take sumatriptan at 1st onset of headache.May repeat the dose in 2 hours if headache persists. Max 200 mg in 24 hours. Limit use to no more than 9 days per month. For nausea associated with headache no recommendations were made. Limit all abortive therapies collectively to no more than 14 days per month to avoid medication overuse headache or blocking the effects of preventive therapies. Future considerations for treatment include increasing Cymbalta, venlafaxine, Zoloft, Qulipta, CGRPMabs, rizatriptan, eletriptan. Continue to follow Spine Clinic for treatment options regarding her ongoing neck pain. Caution: Avoid Tricyclics due to history of palpitations. Avoid beta blockers due to history of bradycardia on higher doses. Follow up recommendations: 6 months, schedule same day as Botox. May be telehealth visit if patientprefers. documented in this encounter Plan of Treatment Upcoming Encounters Date Type Department Care Team (Late st Contact Info) Description 02/01/2024 2:45 PM LEARNING ADMINISTRATOR Appointment Department of Neurology in [place], [place] [address] [place] [phone] Rachael Lowery APRN, C.N.P., M.S.N. [address] [place] [address] Discharge Disposition: Home or Self Care Scheduled Referrals Name Type Priority Associated Diagnoses Orde r Schedule Neurology office visit (clinic) Outpatient Referral Routine Expected: 05/23/2024, Expires: 02/22/2025 documented as of this encounter Visit Diagnoses Diagnosis Chronic Migraine- Primary documented in this encounter Additional Health Concerns Assessment Noted Time PHQ-9 Depression Total Score: 2 11/23/19 24 9:56 AM CDT documented as of this encounter Care Teams Bonbon Dipper Relationship Specialty Start Date End Date Elsewhere, Pcp PCP - General Internal Medicine 05/22/23 documented as of this encounter
== END 2023-12-15 10:24 | disposition home or self-care (01) ==
LOC: NFLDREF 10:24
PROVIDERS: PCP Internal Medicine; Visit Provider Internal Medicine
DX: M85.80 Other specified disorders of bone density and structure, unspecified site (principal)
CPT/HCPCS: 82306

== ENCOUNTER 2024-04-14 13:00 | Outpatient (RCR) | payer MEDICARE, OTHER, SELFPAY ==
--- NOTE | 2024-03-08 07:44 | PT.OP2DDNX ---
PT [facility] 2nd Diagnosis Daily Note PT [facility] 2nd Diag Daily Note Start: 03/07/24 11:08 Freq: Status: Active Protocol: Document 03/07/24 11:08 VAUGHN (Rec: 03/07/24 17:14 VAUGHN [id number]) E-signed By Emily Jc, PT PT [facility] 2nd Diagnosis Daily Note Visit Information Note Type Evaluation-2nd Diagnosis Visit Number 1 Physician Authorized Visits Eval and treat Insurance Information Recert Due Date 06/01/24 Insurance Name Medicare B Insurance Information/Comments TFL Medical Diagnosis Cervicalgia Treating Diagnosis Neck pain, limited neck ROM, muscle weakness Referring MD Rajan Subjective Subjective Lynnette reports to PT with primary complaint of neck pain and headaches. She originally notes chronic neck pain with inability to straighten her neck leading to C1/C2 cervical fusion in 2015. Since this she has had chronic muscle tension throughout her neck, pain and headaches that she can feel in my scalp and at the base of her head. She has been getting botox injections (treated as migraine injections) for the past couple of years every 3 months . Did help some initially but takes a while to kick in and more recently has not helped at all. She gets massages which help temporarily. She has tried oral muscle relaxants without much benefit and SOR techniques on her own . She did have dry needling one time which was extremely painful in her upper traps and was not helpful at the time either. Goal is to reduce tension and BANG. PMH: C1/C2 fusion 2016 Pain Comments 5-08/09 Precautions Treatment Precautions/Contraindications C1/C2 spinal fusion Objective Other/Pertinent Objective Cervical ROM: -R Rot: 15 -L Rot: 18 -R Sidebend: 7 -L Sidebend: 10 Very upright posture with loss of cervical curvature, rounded shoulders and elevated shoulders Palpation: Increased tone R>L UT, SO R>L, proximal SCM/ anterior scalene R>L, palpation of spinal fusion components on R upper cervical DNF strength: able to hold x10 sec with some accessory UT muscle use Thoracic rotation: -R 50% -L 75% C4-C7 side glide: significant hypomobility L>R Functional Test Performed & Score NDI: 12, 24% Patient Instructed in Risks/Benefits Yes Therapeutic Exercise Therapeutic Exercise Minutes (minutes) 15 Therapeutic Exercise: To Restore Access Code: [email or web address] Functional Status Handout - Sidelying Thoracic Rotation with Open Book - 1 x daily - 5-7 x weekly - 1 sets - 3 reps - 10 hold - Supine Cervical Rotation AROM on Pillow - 1 x daily - 5-7 x weekly - 1 sets - 3 reps - 10 hold - Supine Deep Neck Flexor Training - Repetitions - 1 x daily - 5-7 x weekly - 1 sets - 3-5 reps - 10 hold - Upper Trap Mobilization with Small Ball - 3-4 x daily - 5 -7 x weekly - 1 sets - 1 reps - 1 min hold - Cervical AROM Flexion and Rotation - 3-4 x daily - 5-7 x weekly - 1 sets - 5 reps Manual Therapy Techniques Manual Therapy Minutes (minutes) 10 Manual Therapy Techniques Supine TrP release R>L UT, scalene: anterior, SCM, SO Treatment Minutes Untimed Code Treatment Minutes 20 Timed Code Treatment Minutes 25 Total Treatment Time 45 2nd Diagnosis Billing Complexity-2nd Diagnosis Low Billing Units Manual Therapy Units 1 Therapeutic Exercise Units 1 Assessment/Impression Assessment/Impression Patient is a 68 year old female presenting to physical therapy for evaluation and treatment of chronic neck pain and headaches with history of C1/C2 spinal fusion. Patient presents with significantly limited cervical mobility, DNF weakness, significant muscle tension and guarding R>L cervical musculature most notable in proximal SCM/ anterior scalene, UT, SO. These impairments are limiting the patients ability to drive , concentrate, perform manager science. Patient appears motivated to participate in PT and presents with good prognosis to improve mobility, strength, proprioception and return to functional activities with skilled physical therapy intervention. Primary Functional Limitations drive, concentrate, perform manager science Plan of Care Physical Therapy Goals In 4 visits: Pt will demonstrate at least 20 deg cervical rotation R/L with <2/10 pain in order to improve ability to drive Pt will report 25-50% improvement in BANG symptoms over the course of a week in order to improve concentration In 10 visits: Pt will exhibit 10% improvement (or 5 points) in NDI Outcome measure to demonstrate functional improvement and progress towards goals. Pt will demonstrate at least 30 deg cervical rotation R/L with <2/10 pain in order to improve ability to drive Pt will report 50-75% improvement in BANG symptoms over the course of a week in order to improve concentration Daily Plan of Care Continue per POC Daily Plan of Care Comments May benefit from additional dry needling trial
== END 2024-08-12 23:59 | disposition home or self-care (01) ==
PROVIDERS: PCP Internal Medicine; Visit Provider Internal Medicine
DX: R35.0 Frequency of micturition (principal); R19.7 Diarrhea, unspecified; Z51.89 Encounter for other specified aftercare
CPT/HCPCS: 97110; 97112; 97140; 97161; 97162; 97530; 97535

== ENCOUNTER 2024-08-09 09:13 | Outpatient (CLI) | payer MEDICARE, OTHER, SELFPAY ==
--- NOTE | 2024-08-09 09:15 | CRLHL7_ITS ---
For Patients: As a result of the Century Cures Act, medical imaging exams and procedure reports are released immediately into your electronic medical record. You may view this report before your referring provider. If you have questions, please contact your health care provider. INDICATION: BILATERAL SCREENING MAMMOGRAM, ASYMPTOMATIC 69 Y/O FEMALE COMPARISON: 08/05/2023, 06/04/2022, 01/02/2021 TECHNIQUE: Digital mammogram in CC and MLO projections including computer-aided detection (CAD) and tomosynthesis. BREAST COMPOSITION: The breasts are heterogeneously dense, which may obscure small masses. FINDINGS: No suspicious findings. ASSESSMENT: BI-RADS 2 Benign RECOMMENDATION: Annual screening mammogram. A lay language report of this examination will be provided to the patient. Dictated by: Adriel Fragoso MD @ 08/11/2024 11:16:56 (Electronically Signed)
== END 2024-08-09 09:14 | disposition home or self-care (01) ==
LOC: MAMMO 09:13
PROVIDERS: PCP Internal Medicine; Visit Provider Internal Medicine
DX: Z12.31 Encounter for screening mammogram for malignant neoplasm of breast (principal); R92.333 Mammographic heterogeneous density, bilateral breasts
CPT/HCPCS: 77063; 77067

== ENCOUNTER 2024-12-13 09:25 | Outpatient (CLI) | payer MEDICARE, OTHER, SELFPAY | END 2024-12-13 09:26 | disposition home or self-care (01) | LOC: NFLDREF 12-29 02:38 | PROVIDERS: PCP Internal Medicine; Referring Provider Internal Medicine; Visit Provider Internal Medicine | DX: M85.80 Other specified disorders of bone density and structure, unspecified site (principal) | CPT/HCPCS: 82306 ==

== ENCOUNTER 2024-12-26 07:30 | Outpatient (CLI) | payer MEDICARE, OTHER, SELFPAY ==
--- NOTE | 2024-12-26 07:45 | CRLHL7_ITS ---
For Patients: As a result of the Cures Act, medical imaging exams and procedure reports are released immediately into your electronic medical record. You may view this report before your referring provider. If you have questions, please contact your health care provider. DIGITAL DIAGNOSTIC BILATERAL MAMMOGRAM USING TOMOSYNTHESIS AND COMPUTER-AIDED DETECTION BILATERAL BREAST ULTRASOUND CLINICAL HISTORY: BILATERAL breast lumps. COMPARISON: 08/09/2024, 08/05/2023, 06/04/2022. TECHNIQUE: Digital BILATERAL mammogram in four projections with computer-aided detection. Tomosynthesis was used in this interpretation. Real-time ultrasound imaging of BILATERAL breast with imaging documentation. BREAST COMPOSITION: The breasts are heterogeneously dense, which may obscure small masses. FINDINGS: 3D CC/MLO BILATERAL mammogram images submitted. Benign calcifications are present bilaterally. No suspicious masses or architectural distortion. No adenopathy. Targeted RIGHT breast ultrasound performed in the area of concern at 11 o`clock 10 cm from the nipple. Normal fibroglandular tissue is present. Targeted LEFT breast ultrasound performed at 2 o`clock 11 cm from the nipple. Normal fibroglandular tissue is present. IMPRESSION: No evidence of malignancy. RECOMMENDATIONS: Routine screening mammography. A lay language report of this examination will be provided to the patient. BI-RADS Category 2: Benign Dictated by Adriel Fragoso MD @ 12/26/2024 9:17:19 AM jj/Dictated by: Adriel Fragoso MD @ 12/26/2024 9:17:00 AM (Electronically Signed)
--- NOTE | 2024-12-26 08:15 | CRLHL7_ITS ---
For Patients: As a result of the Cures Act, medical imaging exams and procedure reports are released immediately into your electronic medical record. You may view this report before your referring provider. If you have questions, please contact your health care provider. SEE DIGITAL DIAGNOSTIC BILATERAL MAMMOGRAM PERFORMED SAME DAY CRL:michele bautista/Dictated by: Adriel Fragoso MD @ 12/26/2024 9:15:00 AM (Electronically Signed)
== END 2024-12-26 07:31 | disposition home or self-care (01) ==
PROVIDERS: PCP Internal Medicine; Visit Provider Internal Medicine
DX: N63.10 Unspecified lump in the right breast, unspecified quadrant (principal); N63.20 Unspecified lump in the left breast, unspecified quadrant; R92.333 Mammographic heterogeneous density, bilateral breasts
CPT/HCPCS: 76642; 77066; G0279